=== PATIENT | female | born 1955 ===

== ENCOUNTER 2017-12-11 07:26 | Day surgery (SDC) | payer OTHER ==
[~2017-12-11 07:26] MED LIST: CANABIS PO; GABAPENTIN100 MG PO; METFORMIN HCL500 MG PO; SYNTHROID88 MCG PO; TENORMIN50 M1 PO
[2017-12-11] MEDS ORDERED: TYLENOL EXTRA500 MG PO (13:05)
== END 2017-12-11 14:30 | disposition home or self-care (01) ==
LOC: CIR.AMB 07:26
DX: N84.0 Polyp of corpus uteri (principal)